=== PATIENT | female | born 1950 | race African-American/Black ===

== ENCOUNTER 2016-10-09 07:50 | Outpatient (CLI) | payer OTHER ==
[~2016-10-09 07:50] MED LIST: TRIA1CAP2
== END 2016-10-09 18:58 | disposition home or self-care (01) ==
LOC: SCA 07:50
PROVIDERS: ATTEND Internal Medicine
DX: I10 Essential (primary) hypertension (principal)
CPT/HCPCS: 93306

== ENCOUNTER 2016-10-31 15:34 | Outpatient (CLI) | payer OTHER ==
[2016-10-31 16:09] LABS: BILIRUBIN,URINE NEGATIVE (NEGATIVE); CLARITY/URINE CLEAR (CLEAR); COLOR,URINE YELLOW (YELLOW); GLUCOSE,URINE NEGATIVE (NEGATIVE); KETONES,URINE NEGATIVE (NEGATIVE); LEUKOCYTE ESTERASE ,URINE NEGATIVE (NEGATIVE); NITRITE, URINE NEGATIVE (NEGATIVE); PROTEIN URINE NEGATIVE (NEGATIVE); UROBILINOGEN,URINE 0.2 (0.2-1.0)
[2016-10-31 16:15] LABS: BLOOD, URINE TRACE (NEGATIVE)
[2016-10-31 17:29] LABS: BACTERIA,URINE FEW /HPF (None Seen); RBC,URINE 0-3 /HPF (0-3); WBC,URINE 0-3 /HPF (0-3)
[2016-10-31 17:30] LABS: MUCUS,URINE 1+ /LPF (None Seen)
== END 2016-10-31 18:17 | disposition home or self-care (01) ==
LOC: SLB 15:34
PROVIDERS: ATTEND Internal Medicine
DX: N39.0 Urinary tract infection, site not specified (principal)
CPT/HCPCS: 81000-TC; 87086

== ENCOUNTER 2016-11-20 08:02 | Outpatient (CLI) | payer OTHER | END 2016-11-20 19:17 | disposition home or self-care (01) | LOC: SUS 08:02 | PROVIDERS: ATTEND Internal Medicine | DX: R10.9 Unspecified abdominal pain (principal) | CPT/HCPCS: 76700-TC ==

== ENCOUNTER 2017-08-03 09:59 | Emergency (ER) | payer OTHER ==
[~2017-08-03] VITALS: Ht 157.5 cm; Wt 83.9 kg
[2017-08-03 10:04] VITALS: BP_SYST 157
[2017-08-03 11:58] VITALS: BP_SYST 141
== END 2017-08-03 11:58 | disposition home or self-care (01) ==
LOC: SED 09:59
DX: J20.9 Acute bronchitis, unspecified (principal); I10 Essential (primary) hypertension; Z88.2 Allergy status to sulfonamides
CPT/HCPCS: 71010; 99283

== ENCOUNTER 2017-08-27 13:06 | Outpatient (CLI) | payer OTHER | END 2017-08-27 21:07 | disposition home or self-care (01) | LOC: SRD 13:06 | PROVIDERS: ATTEND Internal Medicine | DX: M17.0 Bilateral primary osteoarthritis of knee (principal) ==

== ENCOUNTER 2018-10-25 08:25 | Outpatient (CLI) | payer OTHER ==
[~2018-10-25 08:25] MED LIST changes: +ASPI-858 PO; +CAT1PAT TD; +LOSA100T3 PO
== END 2018-10-25 23:30 | disposition home or self-care (01) ==
LOC: SUS 08:25
PROVIDERS: ATTEND Internal Medicine
DX: I82.402 Acute embolism and thrombosis of unspecified deep veins of left lower extremity (principal)
CPT/HCPCS: 93971

== ENCOUNTER 2019-07-24 07:57 | Emergency (ER) | payer OTHER ==
[~2019-07-24] VITALS: Ht 157.5 cm; Wt 81.6 kg
[2019-07-24 07:57] VITALS: BP_SYST 185
--- NOTE | 2019-07-24 08:07 | NUR ---
Patient to ER bed 07 to gown for evaluation. Side rails up. Placed on continuous medical services manager and VS.
--- NOTE | 2019-07-24 08:08 | NUR ---
Patient arrived in the ED c/o left-sided rib pain during inhalation for 4 days. Denied any recent trauma or falls. Denied any chest pain, SOB or dizziness. Patient is alert and oriented x4, respirations even and unlabored, speaking in full sentences, and ambulating with a steady gait. VSS, pain level 1/10. Informed of the wait time. Instructed to notify ED staff for any changes in condition or worsening of symptoms. Patient verbalized understanding.
--- NOTE | 2019-07-24 08:09 | NUR ---
Patient ambulated with a steady gait to the bathroom. Urine specimen collected.
--- NOTE | 2019-07-24 08:18 | NUR ---
ER Dr. Paredes at bedside examining patient.
[2019-07-24] MEDS ORDERED: IBUPROFEN 400 MG TABLET PO ONE (08:30)
--- NOTE | 2019-07-24 08:37 | NUR ---
Administered Ibuprofen 400mg PO as ordered by Dr. Paredes. Patient tolerated the medication well.
--- NOTE | 2019-07-24 08:41 | NUR ---
ECG done at bedside as ordered by Dr. Paredes. Patient tolerated the procedure well. Report given to
--- NOTE | 2019-07-24 08:42 | NUR ---
X-ray done at bedside as ordered by Dr. Paredes. Patient tolerated the procedure well.
--- NOTE | 2019-07-24 09:30 | NUR ---
ER Dr. Paredes at bedside giving discharge instructions to the patient.
--- NOTE | 2019-07-24 09:40 | NUR ---
Patient given written and verbal discharge instructions and verbalizes understanding. ER MD discussed with patient the results and treatment provided. Patient in stable condition. ID arm band removed. Rx of Naproxen given. Patient educated on pain management and to follow up with PMD. Pain Scale 0/10. Opportunity for questions provided and answered. Medication side effect fact sheet provided.
[2019-07-24 09:42] VITALS: BP_SYST 133
== END 2019-07-24 09:40 | disposition home or self-care (01) ==
LOC: SED 07:57
DX: M94.0 Chondrocostal junction syndrome [Tietze] (principal); R07.89 Other chest pain; I10 Essential (primary) hypertension; Z79.82 Long term (current) use of aspirin; Z79.899 Other long term (current) drug therapy; Z88.2 Allergy status to sulfonamides; Z88.8 Allergy status to other drugs, medicaments and biological substances
CPT/HCPCS: 71045; 93005; 99283

== ENCOUNTER 2020-02-19 13:49 | Outpatient (CLI) | payer OTHER | END 2020-02-19 19:47 | disposition home or self-care (01) | LOC: SRD 13:49 | PROVIDERS: ATTEND Internal Medicine | DX: M43.17 Spondylolisthesis, lumbosacral region (principal); M47.816 Spondylosis without myelopathy or radiculopathy, lumbar region; I70.0 Atherosclerosis of aorta; M89.38 Hypertrophy of bone, other site; M25.552 Pain in left hip; M54.5 Low back pain | CPT/HCPCS: 72110; 72170-TC; 73502 ==

== ENCOUNTER 2020-04-02 12:04 | Outpatient (CLI) | payer OTHER | END 2020-04-02 20:39 | disposition home or self-care (01) | LOC: SLB 12:04 | PROVIDERS: ATTEND Internal Medicine | DX: Z20.828 Contact with and (suspected) exposure to other viral communicable diseases (principal) | CPT/HCPCS: C9803; U0003 ==

== ENCOUNTER → 2020-10-28 | Outpatient (CLI) | payer OTHER | END | disposition home or self-care (01) | LOC: SUS 08:37 | DX: I82.409 Acute embolism and thrombosis of unspecified deep veins of unspecified lower extremity (principal) | CPT/HCPCS: 93970 ==

== ENCOUNTER 2020-11-17 16:03 | Outpatient (CLI) | payer OTHER | END 2020-11-17 20:35 | disposition home or self-care (01) | LOC: SRD 16:03 | PROVIDERS: ATTEND Internal Medicine | DX: J18.9 Pneumonia, unspecified organism (principal) | CPT/HCPCS: 71046-TC ==

== ENCOUNTER 2021-08-26 04:34 | Emergency (ER) | payer OTHER, SELFPAY ==
[~2021-08-26] VITALS: Ht 157.5 cm; Wt 83.9 kg
[2021-08-26 05:01] VITALS: BP_SYST 158
--- NOTE | 2021-08-26 05:01 | NUR ---
Patient came in to the emergency department for evaluation. Reports cough and feeling fatigue for 4 days. Patient breathing easy, respirations even unlabored. Patient denies any pain at this time. Patient afebrile, no nausea, no vomiting, no abdominal pain, no diarrhea. Patient AAO x 4, ambulatory with steady gait. Awaiting ER MD to mitul in the tent.
--- NOTE | 2021-08-26 05:09 | NUR ---
ER in triage examining patient.
--- NOTE | 2021-08-26 05:09 | NUR ---
Patient triaged and placed in the tent. VSS and patient appears in no acute distress at this time. Accompanied by self, awaiting available bed, and MD notified of need for MSE.
[2021-08-26 06:30] VITALS: BP_SYST 155
--- NOTE | 2021-08-26 06:30 | NUR ---
Patient given written and verbal discharge instructions and verbalizes understanding. ER MD discussed with patient the results and treatment provided. Patient in stable condition. No Rx given. Patient educated on pain management and to follow up with PMD. Pain Scale 0/10. Opportunity for questions provided and answered.
== END 2021-08-26 06:30 | disposition home or self-care (01) ==
LOC: SED 04:34
DX: U07.1 COVID-19 (principal)
CPT/HCPCS: 36415; 71045; 99284

== ENCOUNTER 2022-09-09 10:44 | Emergency (ER) | payer OTHER ==
[~2022-09-09] VITALS: Ht 157.5 cm; Wt 77.1 kg
--- NOTE | 2022-09-09 11:02 | NUR ---
ER at bedside examining patient.
[2022-09-09 11:05] VITALS: BP_SYST 175
--- NOTE | 2022-09-09 11:13 | NUR ---
pt presents to ED with c/o head injury. per pt, states she was assisting her up due to him losing his balance and in the process she hit her head on the kitchen table while standing up. pt is awake, a/o x4 and speaks clear full sentences. pt states "im just worried because i have a history of blood clots and taking eliquis." pt denies any head pain, nausea, blurred vision or sob. pt reports she hit her head last night and that she "feels fine" which is why she did not come last night. pt sitting upright in rney in position of comfort. safety measures in place.
[2022-09-09 12:52] VITALS: BP_SYST 148
--- NOTE | 2022-09-09 12:53 | NUR ---
discharge instructions reviewed with pt, pt verbalized understanding and denied questions. pt ambulated from ed with steady gait and discharge paperwork in hand
== END 2022-09-09 12:52 | disposition home or self-care (01) ==
LOC: SED 10:44
DX: S00.03XA Contusion of scalp, initial encounter (principal); I10 Essential (primary) hypertension; Z88.2 Allergy status to sulfonamides; W23.0XXA Caught, crushed, jammed, or pinched between moving objects, initial encounter; Y93.89 Activity, other specified; Y92.090 Kitchen in other non-institutional residence as the place of occurrence of the external cause; Y99.8 Other external cause status
CPT/HCPCS: 70450-TC; 76376; 99284

== ENCOUNTER 2022-11-13 10:34 | Emergency (ER) | payer OTHER ==
[~2022-11-13] VITALS: Ht 157.5 cm; Wt 81.6 kg
[~2022-11-13 10:34] MED LIST changes: -LOSA100T3 PO; +LOSA100T4 PO
[2022-11-13 10:35] VITALS: BP_SYST 175
--- NOTE | 2022-11-13 10:40 | NUR ---
Patient triaged and placed in waiting room. VSS and patient appears in no acute distress at this time. Accompanied by SELF, awaiting available bed, and MD notified of need for MSE.
--- NOTE | 2022-11-13 12:00 | NUR ---
DR SHOEMAKER OUT TO TRIAGE ROOM FOR EVALUATION
--- NOTE | 2022-11-13 12:59 | NUR ---
Patient to ER bed 6 to gown for evaluation. Side rails up. Report given to SAVITA ROBERTS.
--- NOTE | 2022-11-13 13:00 | NUR ---
ER at bedside examining patient.
--- NOTE | 2022-11-13 14:17 | NUR ---
Patient given written and verbal discharge instructions and verbalizes understanding. ER MD discussed with patient the results and treatment provided. Patient in stable condition. ID arm band removed. Patient educated on pain management and to follow up with PMD. Opportunity for questions provided and answered. Medication side effect fact sheet provided.
[2022-11-13 14:39] VITALS: BP_SYST 175
== END 2022-11-13 14:17 | disposition home or self-care (01) ==
LOC: SED 10:34
DX: I82.402 Acute embolism and thrombosis of unspecified deep veins of left lower extremity (principal); R22.42 Localized swelling, mass and lump, left lower limb; I10 Essential (primary) hypertension; Z88.2 Allergy status to sulfonamides; Z88.8 Allergy status to other drugs, medicaments and biological substances; Z79.899 Other long term (current) drug therapy
CPT/HCPCS: 93971; 99284

== ENCOUNTER 2024-03-06 13:23 | Outpatient (CLI) | payer OTHER ==
[~2024-03-06 13:23] MED LIST changes: +LOSA-415 PO; -LOSA100T4 PO
== END 2024-03-06 20:51 | disposition home or self-care (01) ==
LOC: SRD 13:23
PROVIDERS: ATTEND Internal Medicine
DX: M19.041 Primary osteoarthritis, right hand (principal); M25.475 Effusion, left foot